=== PATIENT | female | born 1950 | race Caucasian/White ===

== ENCOUNTER 2016-11-15 07:31 | Emergency (ER) | payer OTHER ==
[2016-11-15 07:38] VITALS: RESP 16; TEMP 97.5
--- NOTE | 2016-11-15 07:52 | CPEKG ---
Heart Rate: 66 RR Interval: 909 P-R Interval: 164 QRSD Interval: 78 QT Interval: 400 QTC Interval: 420 P [place]: 45 QRS [place]: -44 T Wave [place]: 37 EKG Severity - OTHERWISE NORMAL ECG - EKG Impression: SINUS RHYTHM EKG Impression: LEFT AXIS DEVIATION Electronically Signed By: Melissa Matthew 15-Nov-2016 15:25:41
[2016-11-15] MEDS ORDERED: ASPIRIN 81 MG CHEWABLE TAB PO ONE (08:05)
[2016-11-15] MEDS ORDERED: NS 500 ML IV ONE (08:05)
--- NOTE | 2016-11-15 08:09 | EDPHY ---
H & P Time Seen by Provider: 11/15/16 07:49 HPI/ROS: CHIEF COMPLAINT: Palpitations HISTORY OF PRESENT ILLNESS: Patient is a 66-year-old female presents emergency department with palpitations. She woke from sleep with palpitations at 3:30 a.m.. She states that she has been having some recent reflux and did not take her evening medications. She missed her metoprolol dose. She took her metoprolol at 3:30 a.m. in the morning. She had some chest tightness. She woke up at 6:30 a.m. morning and felt "crummy." At this time she is feeling better. She has no current chest pain. No shortness of breath. No nausea or vomiting. No fevers or chills. No cough. REVIEW OF SYSTEMS: My complete review of systems is negative except as mentioned in the HPI. Past Medical/Surgical History: Includes [place], chronic pain, scoliosis, asthma, SVT Past surgical history: Includes hysterectomy, left knee surgery, left hip replacement Social history: The patient is . The patient does not smoke Family history: Noncontributory Smoking Status: Former smoker Physical Exam: GENERAL: Well-appearing, in no acute distress, alert. HEENT: Eyes normal to inspection, normal pharynx, no signs of dehydration. NECK: No thyromegaly, no lymphadenopathy, supple. RESPIRATORY: Clear to auscultation bilaterally, no rales, rhonchi or wheezing. CVS: Regular rate and rhythm, no rubs, murmurs, or gallops. Normal ABDOMEN: Soft, nontender, nondistended, no organomegaly. BACK: Normal to inspection, no CVA tenderness. SKIN: Normal color, no rash, warm, dry. No pallor. EXTREMITIES: No pedal edema, no calf tenderness, no Homans sign or cords, no joint swelling. NEURO/PSYCH: Alert and oriented x3, normal mood and affect, normal motor sensory exam. No obvious cranial nerve deficit. Constitutional: Initial Vital Signs Temperature (C) 36.4 C 11/15/16 07:32 Heart Rate 86 11/15/16 07:32 Respiratory Rate 16 11/15/16 07:32 Blood Pressure 122/80 H 11/15/16 07:32 O2 Sat (%) 99 11/15/16 07:32 O2 Delivery Mode Room Air O2 (L/minute) 2 Allergies/Adverse Reactions: No Known Allergies Allergy (Unverified 10/28/15 15:00) Home Medications: Medication Instructions Recorded Albuterol [Ventolin Hfa Inhaler] 1 - 2 puffs IH Q4 PRN 10/26/15 Diazepam [Valium 5 MG (*)] 2.5 - 5 mg PO DAILY PRN 10/26/15 Estradiol [Estrace Vaginal (*)] 1 joel VAG DAILY 10/26/15 Fluticasone/Salmeter 100/50Mcg 1 puffs IH BID PRN 10/26/15 [Advair 100/50 (*)] Gabapentin [Neurontin 300 MG (*)] 300 mg PO DAILY 10/26/15 Gabapentin [Neurontin 300 MG (*)] 600 mg PO HS 10/26/15 Hydrocodone/APAP 5/325 [[place] 1 - 2 tab PO Q6H PRN 10/26/15 5/325 (*)] Levocetirizine Tab 5 mg PO DAILY PRN 10/26/15 Metoprolol Succinate Xr [Toprol Xl 25 mg PO HS 10/26/15 25 mg (*)] Montelukast Sodium [Singulair 10 10 mg PO HS 10/26/15 mg (*)] Olopatadine HCl [[place]] 1 drop EACHEYE DAILY PRN 10/26/15 Ranitidine HCl [Zantac 75] 75 mg PO DAILY PRN 10/26/15 Zolpidem Tartrate [Ambien 5MG (*)] 10 mg PO HS PRN 10/26/15 oxyCODONE CR [Oxycontin] 10 mg PO BID 10/26/15 Beclomethasone Qvar 80 [Qvar 80 1 puffs IH BID 11/05/15 (*)] Acetaminophen [Tylenol 325mg (*)] 325 - 650 mg PO Q6 PRN #0 tab 11/06/15 Aspirin EC [Aspirin EC 325 mg (*)] 325 mg PO DAILY #0 tab 11/06/15 Docusate Sodium [Colace 100 MG (*)] 100 mg PO BID #0 cap 11/06/15 celeCOXIB [Celebrex (*)] 200 mg PO DAILY #20 cap 11/06/15 oxyCODONE CR [Oxycontin] 10 mg PO BID #0 tab 11/06/15 Medical Decision Making - Diagnostics EKG Interpretation: EKG shows normal sinus rhythm, [normal rate, left axis deviation, normal intervals]. There are [no ST or T-wave abnormalities]. This EKG is abnormal as interpreted by me with left axis deviation. Imaging Results: Imaging Impressions Chest X-Ray 11/15/16 08:06 Impression: Clear lungs. No acute process. ED Course/Re-evaluation: In the emergency department I met the patient on arrival. I discussed possible etiologies. I answered all her questions. IV was placed. Patient was given aspirin 324 mg orally. Laboratory studies, EKG and chest x-ray were ordered. I reviewed the patient's laboratory studies. Chemistry, CBC and D-dimer were unremarkable. There was a delay in obtaining troponin. I called the lab on numerous occasions. I rechecked the patient on numerous occasions while here. She had no new chest pain, palpitations or shortness of breath. She felt well. Troponin: Negative 1005: I discussed the results with the patient. Answered all her questions. Cardiology was paged. The patient previously saw Dr. Ojeda and I paged Cardiology from the [facility]. Dr. Smith was on-call. I discussed the case with Cardiology. They recommended close follow-up in her office. They did not feel she needed further workup in the emergency department. 1023: I discussed the plan with the patient. I answered all her questions. At time of discharge she had no complaints. No chest pain or palpitations. She will return with worsening symptoms. She was given warnings prior to leaving. Differential Diagnosis: My differential includes but is not limited to ACS, acute CT, dysrhythmia, SVT, ventricular tachycardia, electrolyte abnormality, sugar abnormality, dehydration - Data Points Laboratory Results: Laboratory Results 11/15/16 Unknown 11/15/16 08:05 11/15/16 11/15/16 11/15/16 Unknown Unknown 08:05 WBC 6.15 10^3/uL 10^3/uL (3.80-9.50) RBC 4.94 10^6/uL 10^6/uL (4.18-5.33) Hgb 15.0 g/dL g/dL (12.6-16.3) Hct 43.4 % % (38.0-47.0) MCV 87.9 fL fL (81.5-99.8) MCH 30.4 pg pg (27.9-34.1) MCHC 34.6 g/dL g/dL (32.4-36.7) RDW 12.3 % % (11.5-15.2) Plt Count 368 10^3/uL 10^3/uL (150-400) MPV 9.9 fL fL (8.7-11.7) Neut % (Auto) 55.6 % % (39.3-74.2) Lymph % (Auto) 33.7 % % (15.0-45.0) [place] % (Auto) 7.3 % % (4.5-13.0) Eos % (Auto) 2.1 % % (0.6-7.6) Baso % (Auto) 1.0 % % (0.3-1.7) Nucleat RBC Rel Count 0.0 % % (0.0-0.2) Absolute Neuts (auto) 3.42 10^3/uL 10^3/uL (1.70-6.50) Absolute Lymphs (auto) 2.07 10^3/uL 10^3/uL (1.00-3.00) Absolute Monos (auto) 0.45 10^3/uL 10^3/uL (0.30-0.80) Absolute Eos (auto) 0.13 10^3/uL 10^3/uL (0.03-0.40) Absolute Basos (auto) 0.06 10^3/uL 10^3/uL (0.02-0.10) Absolute Nucleated RBC 0.00 10^3/uL 10^3/uL (0-0.01) Immature Gran % 0.3 % % (0.0-1.1) Immature Gran # 0.02 10^3/uL 10^3/uL (0.00-0.10) D-Dimer 0.29 ug/mLFEU ug/mLFEU (0.00-0.50) Sodium 140 mEq/L mEq/L (134-144) Potassium 3.6 mEq/L mEq/L (3.5-5.2) Chloride 106 mEq/L mEq/L (97-110) Carbon Dioxide 22 mEq/l mEq/l (22-31) Anion Gap 12 mEq/L mEq/L (8-16) BUN 10 mg/dL mg/dL (7-23) Creatinine 0.7 mg/dL mg/dL (0.6-1.0) Estimated GFR > 60 Glucose 114 mg/dL H mg/dL (70-100) Calcium 10.4 mg/dL mg/dL (8.5-10.4) Troponin I < 0.012 ng/mL ng/mL (0-0.034) Medications Given: Discontinued Medications Aspirin (Aspirin) 324 mg PO EDNOW ONE Stop: 11/15/16 08:06 Last Admin: 11/15/16 09:39 Dose: 324 mg Sodium Chloride (Ns) 500 mls @ 0 mls/hr IV ONCE ONE PRN Reason: As Directed Stop: 11/15/16 08:06 Last Admin: 11/15/16 09:39 Dose: 500 mls Departure - Departure Disposition: Home, Routine, Self-Care Clinical Impression: Palpitations Condition: Good Instructions: Palpitations (ED) Additional Instructions: Return with increasing chest pain, shortness of breath, increased palpitations or any other concerns. Referrals: Lexi Greene MD [Primary Care Provider] - 2-3 days without fail Rich Smith MD [Medical Doctor] - 2-3 days without fail
[2016-11-15 08:11] LABS: % IMMATURE GRANULYOCYTES 0.3 % (0.0-1.1); ABSOLUTE IMMATURE GRANULOCYTES 0.02 10^3/uL (0.00-0.10); ADD DIFF? NO; ADD MORPH? NO; ADD SCAN? NO; ATYPICAL LYMPHOCYTE FLAG 10 (0-99); FRAGMENT RBC FLAG 0 (0-99); HEMATOCRIT 43.4 % (38.0-47.0); LEFT SHIFT FLG 0 (0-99); LIPEMIA HEMOLYSIS FLAG 90 (0-99); MEAN CELL HEMOGLOBIN 30.4 pg (27.9-34.1); MEAN CELL HEMOGLOBIN CONCENTR. 34.6 g/dL (32.4-36.7); MEAN CELL VOLUME 87.9 fL (81.5-99.8); MEAN PLATELET VOLUME 9.9 fL (8.7-11.7); PLATELET CLUMPS FLAG 0 (0-99); PLATELET COUNT 368 10^3/uL (150-400); RED BLOOD CELL COUNT 4.94 10^6/uL (4.18-5.33); RED CELL DISTRIBUTION WIDTH 12.3 % (11.5-15.2)
[2016-11-15 08:25] LABS: ANION GAP 12 mEq/L (8-16); CALCIUM 10.4 mg/dL (8.5-10.4); CARBON DIOXIDE 22 mEq/l (22-31); CHLORIDE 106 mEq/L (97-110); CREATININE 0.7 mg/dL (0.6-1.0); GLOMERULAR FILTRATION RATE > 60; GLUCOSE 114 mg/dL (70-100); POTASSIUM 3.6 mEq/L (3.5-5.2); SODIUM 140 mEq/L (134-144)
[2016-11-15] MEDS ORDERED: ASPIRIN 81 MG CHEWABLE TAB ONE (09:28)
[2016-11-15 10:04] LABS: TROPONIN I < 0.012 ng/mL (0-0.034)
[2016-11-15 10:45] VITALS: BP 133/81; PULSE 64; O2SAT 93
== END 2016-11-15 10:45 | disposition home or self-care (01) ==
DX: R00.2 Palpitations (principal); J45.909 Unspecified asthma, uncomplicated; Z79.82 Long term (current) use of aspirin; Z87.891 Personal history of nicotine dependence

== ENCOUNTER → 2018-05-17 | Outpatient (CLI) | payer OTHER | LOC: BHFA 13:00 | PROVIDERS: ATTEND Internal Medicine Cardiovascular Disease | DX: R00.2 Palpitations (principal); I49.9 Cardiac arrhythmia, unspecified; E78.5 Hyperlipidemia, unspecified ==

== ENCOUNTER → 2018-10-15 | Outpatient (CLI) | payer OTHER | LOC: FIMAGING 11:03 | PROVIDERS: ATTEND Physician Assistant | DX: M48.02 Spinal stenosis, cervical region (principal); M50.320 Other cervical disc degeneration, mid-cervical region, unspecified level; M47.892 Other spondylosis, cervical region; M54.12 Radiculopathy, cervical region ==